=== PATIENT | female | born 1990 | race African-American/Black ===

== ENCOUNTER 2021-01-02 19:21 | Emergency (ER) | payer BC, MEDICAID, SELFPAY ==
--- NOTE | 2021-01-02 19:32 | ED.FEMALEGU ---
HPI - Female Genitourinary General Chief complaint: Urogenital-Female Stated complaint: STD Exposure Time Seen by Provider: 01/02/21 20:00 Source: patient and RN notes reviewed Mode of arrival: ambulatory Limitations: no limitations History of Present Illness HPI Narrative: 30-year-old female presents with concern for screening for STDs. She denies any symptoms. Reports she had an unprotected partner, she denies that her partner has any known STDs. She denies abnormal vaginal discharge, abnormal vaginal bleeding, abdominal pain, vomiting or fever. Denies any vaginal lesions or rash. She denies dysuria, frequency, urgency. Denies any chance of . MD elicited complaint: other (STD screening) Related Data Home Medications Medication Instructions Recorded Confirmed No Home Medications 01/02/21 01/02/21 Allergies Allergy/AdvReac Type Severity Reaction Status Date / Time No Known Allergies Allergy Verified 01/02/21 19:49 Review of Systems Review of Systems: CONSTITUTIONAL: Denies malaise, chills, sweats, or fever. GASTROINTESTINAL: Denies abdominal pain, nausea, vomiting, diarrhea GENITOURINARY: Denies dysuria or hematuria. Denies abnormal vaginal discharge or bleeding, denies vaginal rash or lesions. MUSCULOSKELETAL: Denies flank pain, or myalgia. All systems reviewed & are unremarkable except as noted in HPI and below PMFSH Comments At time of signature, agree with nursing past medical, surgical, social and family history. There is no relevant family history pertinent to the presenting complaint Exam Narrative: GENERAL: Well-appearing, well-nourished, and in no acute distress. HEAD: Normocephalic. EYES: PERRLA, conjunctivae clear. NECK: Supple. No lymphadenopathy CHEST: Clear to auscultation. No respiratory distress. HEART: Regular rate and rhythm. SKIN: Warm, dry, no rash. NEURO: Alert and oriented x3. PSYCH: Normal mood and affect Course Course Emergency Course: Discussed with patient treatment for STDs. Discussed treatment requires a potential injection. Patient reports that due to her having no symptoms and having no known exposure she does not choose to receive treatment at this time. Patient understands that if she test positive she will potentially have to return for an injection. Patient is aware of, understands and agrees to treatment plan. Anticipatory guidance given. Patient agrees to follow-up as directed and is aware of reasons to seek care at the emergency department. Portions of this record may have been created with voice recognition software Vital Signs Vital signs: Reviewed. MDM - Female Genitourinary MDM Narrative Medical decision making narrative: Exam findings show no acute concerns or changes; patient is non-toxic appearing and is in no distress. Patient is appropriate for outpatient treatment and follow-up. Critical Care Time Critical Care Time Critical Care Time: No Discharge Plan Discharge Clinical Impression: Screen for STD (sexually transmitted disease) Patient Disposition: Home, Self-Care Condition: Stable Instructions: Safe Sex Practices (ED) Additional Instructions: You have been tested for potential gonorrhea, chlamydia, and trichomoniasis today. You will receive a phone call in 4-5 days with the results of today's testing. If you test positive for any of the STDs tested, you will receive treatment, treatment for gonorrhea includes an injection which she will have to return to the clinic to receive. It is very important that you avoid unprotected intercourse while you await results and for 7 days AFTER ANY NEEDED TREATMENT is complete and until your partner(s) have been treated. Please encourage your partner(s) to seek testing and treatment. When you have been exposed to sexually transmitted infections, it is important that you seek comprehensive testing, since we do not provide testing for all sexually transmitted infections. Some infections can hav
[2021-01-02 19:42] VITALS: BP 116/60; PULSE 91; RESP 14; TEMP 36.6; O2SAT 100
== END 2021-01-02 20:11 | disposition home or self-care (01) ==
PROVIDERS: Emergency Provider Nurse Practitioner
DX: Z11.3 Encounter for screening for infections with a predominantly sexual mode of transmission (principal)
CPT/HCPCS: 87491; 87591; 99213; G0463

== ENCOUNTER 2021-04-11 08:45 | Emergency (ER) | payer BC, MEDICAID, SELFPAY ==
--- NOTE | 2021-04-11 08:54 | ED.FEMALEGU ---
HPI - Female Genitourinary General Chief complaint: Urogenital-Female Stated complaint: STD Exposure Time Seen by Provider: 04/11/21 08:54 Source: patient and RN notes reviewed History of Present Illness HPI Narrative: Patient is a 30-year-old female who presents the urgent care with complaints of a possible STD exposure. Patient states that she started having thin white vaginal discharge over the last few days. Patient denies any itchiness or vaginal irritation. Denies of any known exposure to a known STD. Denies of any foul smelling discharge or change in color. Patient is also concerned of possible however she would only be a few days late on her menstrual cycle. Patient denies any urgency, frequency, suprapubic pressure, low back pain or abdominal pain. Denies any fever, chills, nausea or vomiting. No other acute complaints. No acute distress noted. Patient aware of the plan of care. Some parts of this dictation were generated by voice recognition software and may contain typographical and/or grammatical inaccuracies. Related Data Allergies Allergy/AdvReac Type Severity Reaction Status Date / Time No Known Allergies Allergy Verified 04/11/21 09:02 Review of Systems Review of Systems: CONSTITUTIONAL: Denies fever, chills, or sweats. EYES: Denies visual changes, redness, or discharge. ENT: Denies rhinorrhea, congestion, sore throat, or otalgia. CARDIOVASCULAR: Denies chest pain, palpitations, or edema. RESPIRATORY: Denies cough or dyspnea. GASTROINTESTINAL: Denies abdominal pain, nausea, vomiting, or diarrhea. GENITOURINARY: Reports of thin white vaginal drainage SKIN: Denies rash or itching. MUSCULOSKELETAL: Denies back pain, joint pain, or myalgia. NEUROLOGIC: Denies headache, numbness, or weakness. All other systems reviewed are negative, except as documented in HPI. PMFSH Comments At the time of my signature, I reviewed and agree with the nursing past medical, surgical, social, and family history. There is no relevant family history pertinent to the patient complaint. Exam Narrative: GENERAL: This is a well-nourished, well-developed patient, in no apparent distress. HEAD: normocephalic, atraumatic. EYES: PERRL. Sclera clear/white. Vision is grossly intact. EARS: External ears normal NOSE: External nose normal with no obvious nasal discharge, nares without redness, no rhinorrhea. THROAT: Mucous membranes moist NECK: Neck supple CARDIOVASCULAR: Regular rate and rhythm without murmurs, gallops, or rubs. RESPIRATORY: Clear to auscultation. Breath sounds equal bilaterally. No wheezes, rales, or rhonchi. : Refused vaginal exam SKIN: warm, intact with no suspicious lesions or rash, good texture and turgor. NEURO: awake, alert, and oriented to person, place and time. There were no obvious focal neurologic abnormalities. EXTREMITIES: No clubbing, cyanosis, or edema. Course Course Level of Care: Express Care Visit Vital Signs Vital signs: Vital Signs Temperature 98.6 F 04/11/21 08:55 Pulse Rate 80 04/11/21 08:55 Respiratory Rate 16 04/11/21 08:55 Blood Pressure 128/73 04/11/21 08:55 Pulse Oximetry 100 04/11/21 08:55 Temperature 98.6 F 04/11/21 08:55 Pulse Rate 80 04/11/21 08:55 Respiratory Rate 16 04/11/21 08:55 Blood Pressure 128/73 04/11/21 08:55 Pulse Oximetry 100 04/11/21 08:55 Reviewed MDM - Female Genitourinary MDM Narrative Medical decision making narrative: Reviewed lab results with the patient. She is aware that urine was negative however it may be early to test for considering you may have just missed your menstrual cycle. Urine analysis was negative for indicated infection however we will culture the urine and call if medication is necessary. We will send the urine for STD testing which test trichomonas, chlamydia and gonorrhea. We will call you with results within 4 to 7 days. If you do have a positive result you will be treated a
[2021-04-11 08:55] VITALS: BP 128/73; PULSE 80; RESP 16; TEMP 37; O2SAT 100
== END 2021-04-11 09:28 | disposition home or self-care (01) ==
PROVIDERS: Emergency Provider Nurse Practitioner Family; PCP Nurse Practitioner Adult Health
DX: N89.8 Other specified noninflammatory disorders of vagina (principal); B96.20 Unspecified Escherichia coli [E. coli] as the cause of diseases classified elsewhere
CPT/HCPCS: 81003; 81025; 87077; 87086; 87186; 87491; 87591; 87661; 99213; G0463